=== PATIENT | male | born 1975 | race Caucasian/White ===

== ENCOUNTER 2025-02-02 14:54 | Outpatient (REF) | payer OTHER, SELFPAY ==
--- NOTE | ~2025-02-02 | XR_ITS ---
EXAMINATION: XR ANKLE, RIGHT CLINICAL INFORMATION: instability COMPARISON: None available. TECHNIQUE: AP, lateral, and mortise views of the right ankle. FINDINGS: No fracture. Alignment is anatomic. Joint spaces are maintained. Soft tissues are normal. XR/XR ankle RT min 3V IMPRESSION: No acute fracture or dislocation. Electronically signed by: Padma Moraes MD 02/02/2025 03:30 PM EDT
--- OUTSIDE RECORDS SUMMARY | 2025-02-02 14:00 | XMS_ITS | Encounter Summary ---
Author Organization [facility] Address [address] [place] [address] [address] [place] [address] Care Team Providers Care Workday Senior Associate Name Role Phone Marge Thacker NP Primary Care Provider [phone] Reason for Referral * Consultation (Routine) - Authorized Specialty Diagnoses / Procedures Referred By Rosy curtis Referred To Contact Optometry Diagnoses Preventative health care Marge Thacker NP [address] [place] [address] Phone: tel: fax: [facility] OPTOMETRY [address] [place] [id number] Phone: tel: fax: Referral ID Status Reason Start Date Expiration Date Visits Requested Visits Authorized [id number] Authorized Consult and Treat 02/02/2025 02/02/2026 1 1 Reason for Visit * Reason Comments New Patient Encounter Details Date Type Department Care Team ([facility] st Contact Info) Description 02/02/2025 2:00 PM EDT Office Visit [facility] MEDICINE [address] [place] [address] Marge Thacker NP [address] [place] [address] Encounter to establish care (Primary Dx); Screening for colon cancer; Obesity (BMI 30-39.9); Instability of right ankle joint; Onychomycosis; Preventative health care Social History Tobacco Use Types Packs/Day Years Used Date Smoking Tobacco: Never Smokeless Tobacco: Never Alcohol Use Standard Drinks/Week Comments Not Currently 0 (1 standard drink = 0.6 oz pur e alcohol) quit drinking 16 years ago Depression Answer Date Recorded Patient Health Questionnaire-9 Score 1 02/02/2025 Patient Health Questionnaire-9 Score 1 02/02/2025 Last PHQ-9: Questionnaire Data Not on file 0 02/02/2025 Housing Stability Answer Date Recorded What is your housing situation today? I have mary oates 11/01/[address] you li ve. Do you have problems with any of the following? None of the above 11/01/2024 Food Insecurity Answer Date Recorded Within the past 12 months, y ou worried that your food would run out before you got money to buy more: Never True 11/01/2024 Within the past 12 months,th e food you bought just didn't last and you didn't have enough money to get more: Never True 10/2024 Transportation Answer Date Recorded In the past 12 months, has l ack of transportation kept you from medical appts, meetings, work or from getting things needed for daily living? No 11/01/2024 Utilities Answer Date Recorded In the past 12 months, has t he electric, gas, oil or water company threatened to shut off services in your home? No 11/01/2024 Depression Answer Date Recorded Patient Health Questionnaire-2 Score 0 02/02/2025 Internet Access Answer Date Recorded Internet Access Q1 Yes 11/01/2024 Internet Access Q2 Not on file 11/01/2024 Sex and Gender Information Value Date Recorded Sex Assigned at Male 04/29/2022 10:20 AM EDT Legal Sex Male 10:20 AM EDT Gender Identity Male 01/24/2023 9:50 AM EDT Sexual Orientation Straight 01/24/2023 9: 50 AM EDT documented as of this encounter Last Filed Vital Signs Vital Sign Reading Time Taken Comments Blood Pressure 120/80 02/02/2025 2:05 PM EDT Pulse 105 02/02/2025 2:05 PM EDT Temperature 36.7 C (98.1 F) 02/02/2025 2:05 PM EDT Respiratory Rate 26 02/02/2025 2:05 PM EDT Oxygen Saturation 98% 02/02/2025 2:05 PM EDT Inhaled Oxygen Concentration - - Weight 98.8 kg (217 lb 12.8 oz) 02/02/2025 2:05 PM EDT Height 167.6 cm (5' 6 ) 02/02/2025 2:05 PM EDT Body Mass Index 35.15 02/02/2025 2:05 PM EDT documented in this encounter Functional Status * Over the past 2 weeks, how often have you been bothered by any of the following problems? Question Answer Date of Assessment Author Patient Health Questionnaire -2 Score 0 02/02/2025 3:03 PM EDT Maninder Bartlett MA * Little interest or pleasure in doing things Answer Date of Assessment Author Not at all 02/02/2025 3:03 PM EDT Maninder Bartlett MA * Feeling down, depressed, or hopeless Answer Date of Assessment Author Not at all 02/02/2025 3:03 PM EDT Maninder Bartlett MA * Trouble falling or staying asleep, or sleeping too much Answer Date of Assessment Author Not at all 02/02/2025 3:03 PM EDT Maninder Bartlett MA * Feeling tired or having little energy Answer Date of Assessment Author Several days 02/02/2025 3:03 PM EDT Maninder Bartlett MA * Poor appetite or overeating Answer Date of Assessment Author Not at all 02/02/2025 3:03 PM EDT Maninder Bartlett MA * Feeling bad about yourself - or that you are a failure or have let yourself or your family down Answer Date of Assessment Author Not at all 02/02/2025 3:03 PM IFEOMAT Maninder Bartlett MA * Trouble concentrating on things, such as reading the newspaper or watching television Answer Date of Assessment Author Not at all 02/02/2025 3:03 PM EDT Maninder Bartlett MA * Moving or speaking so slowly that other people could have noticed? Or the opposite - being so fidgety or restless that you have been moving around a lot more than usual. Answer Date of Assessment Author Not at all 02/02/2025 3:03 PM IFEOMAT Maninder Bartlett MA * Thoughts that you would be better off or hurting yourself in some way Answer Date of Assessment Author Not at all 02/02/2025 3:03 PM IFEOMAT Maninder Bartlett MA * Patient Health Questionnaire-9 Score Answer Date of Assessment Author 1 02/02/2025 3:03 PM EDT Maninder Bartlett MA * How difficult have these problems made it for you to do your work, take care of things at home, or get along with other people? Answer Date of Assessment Author Not difficult at all 02/02/2025 3:03 PM EDT Maninder Slade MA * Over the last 2 weeks, how often have you been bothered by any of the following problems? Question Answer Date of Assessment Author Feeling nervous, anxious, or on edge 0 02/02/2025 3:02 PM EDT Maninder Bartlett MA Not being able to stop or co ntrol worrying 0 02/02/2025 3:02 PM EDT Maninder Bartlett MA Worrying too much about diff erent things 0 02/02/2025 3:02 PM EDT Maninder Bartlett MA Trouble relaxing 0 02/02/2025 3:02 PM EDT Maninder Goff MA Being so restless that it is hard to sit still 0 02/02/2025 3:02 PM EDT Maninder Bartlett MA Becoming easily annoyed or irritable 1 02/02/2025 3:02 PM EDT Maninder Bartlett MA Feeling afraid as if somethi ng awful might happen 0 02/02/2025 3:02 PM EDT Maninder Bartlett MA ISAEL-7 Total Score 1 02/02/2025 3:02 PM EDT Maninder Bartlett MA documented as of this encounter Plan of Treatment Scheduled Orders Name Type Priority Associated Diagnoses Orde r Schedule Lipid Panel, Standard Lab Routine Obesity (BMI 30-39.9) Expected: 02/02/2025 (Approximate), Expires: 02/02/2026 Cologuard colon cancer screening Lab Routine Screening for colon cancer Ordered: 02/02/2025 XR Ankle 3+ Views Right Imaging Routine Instability of right ankle joint Expected: 02/02/2025, Expires: 02/02/2026 Hemoglobin A1c Lab Routine Obesity (BMI 30-39.9) Expected: 02/02/2025 (Approximate), Expires: 02/02/2026 Scheduled Referrals Name Type Priority Associated Diagnoses Orde r Schedule Referral to [facility] Eye Care Outpatient Referral Routine Preventative health care Expected: 02/02/2025 (Approximate), Expires: 02/02/2026 documented as of this encounter Visit Diagnoses Diagnosis Encounter to establish care- Primary Screening for colon cancer Special screening for malignant neoplasms, colon Obesity (BMI 30-39.9) Instability of right ankle joint Onychomycosis Dermatophytosis of nail Preventative health care Routine general medical examination at a health care facility documented in this encounter Additional Health Concerns Assessment Noted Time PHQ-9 Depression Total Score: 1 02/03/20 3:03 PM EDT documented as of this encounter Care Teams Workday Senior Associate Relationship Specialty Start Date End Date Marge Thacker NP [address] [place] [phone] PCP - General Family Medicine 02/02/25 documented as of this encounter
[2025-02-02 16:55] LABS: Hemoglobin A1C 123.3158 umol/L; Total Hemoglobin (HGBA1C) 3794.4751 umol/L
[2025-02-02 16:57] LABS: Cholesterol 144 mg/dL (<200); HDL Cholesterol 37 mg/dL (>40); Triglycerides 169 mg/dL (<150)
== END 2025-02-02 14:55 | disposition home or self-care (01) ==
LOC: HO.HHCL 14:54
PROVIDERS: PCP Nurse Practitioner; Visit Provider Nurse Practitioner
DX: M25.371 Other instability, right ankle (principal); E66.9 Obesity, unspecified
CPT/HCPCS: 36415; 73610; 80061; 83036

== ENCOUNTER → 2025-02-02 15:01 | Outpatient (BNV) | payer SELFPAY | PROVIDERS: PCP Nurse Practitioner; Visit Provider Radiology Body Imaging | DX: M25.371 Other instability, right ankle (principal) | CPT/HCPCS: 73610 ==